=== PATIENT | male | born 1970 | race African-American/Black ===

== ENCOUNTER 2017-09-23 16:53 | Inpatient (IN) | payer OTHER ==
[~2017-09-23 16:53] MED LIST: Dexamethasone 20 MG/5 ML VIAL ONE; Glycopyrrolate 0.2 MG/ML 5 ML SYRINGE ONE; ISOVUE-370 76%-LOCM 1 ML ONE; Lidocaine 1% PF 5 ML VIAL ONE; Ondansetron HCl/PF 4 MG/2 ML Vial ONE; PROPOFOL 200 MG/20 ML VIAL ONE
[2017-09-23] MEDS ORDERED: MEROPENEM 1 GM/50 ML 1 GM in Premix Bag 1 BAG IVPB SCH (18:30)
--- NOTE | 2017-09-23 19:19 | CT ---
CT CHEST AND ABDOMEN AND PELVIS AND THORACIC AND LUMBAR SPINE PERFORMED WITH CONTRAST: History: Patient was gored by a bull. Injury in upper abdomen region. FINDINGS: The lungs are clear of any infiltrative process. There are subsegmental atelectatic changes seen in t he lung bases. No pleural effusions. No pulmonary contusion identified. No rib fractures visualized. Thoracic aorta is normal in caliber. No signs of mediastinal hematoma. CT OF ABDOMEN PERFORMED WITH CONTRAST ENHANCEMENT: There is a liver laceration near the junction of the right and left lobes of the liver. This extends approximately 2.6 cm into the liver parenchyma. There is some fairly minimal capsular hematoma presen t. There is evidence of soft tissue injury in this area. The spleen and pancreas regions are unremark able as is the gallbladder. Incidental note is made of a small hepatic cyst adjacent to the gallbladd er. Right and left adrenal glands and right and left kidneys are normal in size. There is some trace flui d in the right pericolic gutter. CT OF PELVIS PERFORMED WITH CONTRAST ENHANCEMENT: No evidence of adenopathy, mass, or free fluid. CT OF THORACIC SPINE: Unremarkable. CT OF LUMBAR SPINE: Unremarkable. IMPRESSION: 1. Evidence of soft tissue injury just to the right of midline in the upper abdomen region. This is a ssociated with a grade II liver laceration. Findings telephoned to Dr. Perry. POS: [facility]
[2017-09-23] MEDS ORDERED: Ondansetron HCl/PF 4 MG/2 ML Vial ONE (20:40)
[2017-09-23] MEDS ORDERED: Midazolam HCl 2 mg/2 ml Vial ONE (20:41)
[2017-09-23] MEDS ORDERED: Fentanyl 100 MCG/2 ML VIAL ONE ×3 (20:41→23:28)
[2017-09-23] MEDS ORDERED: Bupivacaine/Epinephrine 0.25% 30 ML VIAL ONE (20:51)
[2017-09-23] MEDS ORDERED: Promethazine HCl 25 MG/ML VIAL SLOW IVP PRN (22:50)
[2017-09-23] MEDS ORDERED: Promethazine HCl 25 MG/ML VIAL IM PRN (22:50)
[2017-09-23] MEDS ORDERED: Ondansetron HCl/PF 4 MG/2 ML Vial IVP PRN (22:50)
[2017-09-24] MEDS ORDERED: Dextrose 50% Abboject 50 ML SYRINGE SLOW IVP PRN (00:18)
[2017-09-24] MEDS ORDERED: Dextrose 5% in Water 1,000 ML IV PRN (00:18)
[2017-09-24] MEDS: Sodium Chloride 0.9% 1,000 ML IV SCH (02:09)
[2017-09-24] MEDS: Piperacillin/Tazobactam 3.375 GM in Sodium Chloride 0.9% 100 ML IVPB SCH ×2 (02:09→08:12)
--- NOTE | 2017-09-24 03:07 | HP ---
DATE OF ADMISSION: 09/23/2017 ADMITTING PHYSICIAN: Dr. Abdifatah Ruano. HISTORY OF PRESENT ILLNESS: Mr. 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 He reports that he was knocked down and then abl e to get back up on his own. He was taken to the [place] [facility] where a penetrating abdominal wound was identified. He was then transferred to [facility] for a hig her level of care and definitive treatment. He has remained hemodynamically stable. Workup in the e mergency department showed soft tissue injury to the upper abdomen as well as a grade 2 liver lacerat ion. Trauma Services was consulted for admission and management. PAST MEDICAL HISTORY: None. PAST SURGICAL HISTORY: Left inguinal hernia repair. MEDICATIONS: None. ALLERGIES: None. SOCIAL HISTORY: Tobacco, none. Alcohol, six pack of beer per day. Drugs, none. LABORATORY DATA: CBC: WBC 7.5, RBC 4.51, hemoglobin 14.5, hematocrit 39.4, platelets 267. Chemistr y: Sodium 143, potassium 3.5, chloride 108, carbon dioxide 21, glucose 95, BUN 20, creatinine 1.4, c alcium 9.87, total bilirubin 0.5, alkaline phosphatase 69, AST 46, ALT 28. REVIEW OF SYSTEMS: The patient denies fever, chills, recent weight loss or generalized malaise. PABLITO NT: Denies otorrhea, rhinorrhea, sore throat, neck pain. Cardiovascular: Denies chest pain, syncop e, palpitations. Respiratory/Chest: Denies cough, shortness of breath, wheezing. Denies chest wall tenderness. Gastrointestinal: Reports wound to upper abdomen. Reports abdominal pain around wound . Denies nausea, vomiting, diarrhea, constipation. Musculoskeletal: Denies joint pain or trauma. Skin: Denies rash or skin changes. Neurologic: Denies dizziness, focal weakness or seizures. Heme /Lymphatic: Denies abnormal bleeding. PHYSICAL EXAMINATION: VITAL SIGNS: Blood pressure 107/70, pulse 98, respirations 20, temperature 97.8, O2 sat 98% on room air. CONSTITUTIONAL: Well-nourished, well-developed male, lying in bed, in no acute distress. HEENT: Atraumatic, normocephalic. NECK: Trachea midline. No posterior neck tenderness. CARDIOVASCULAR: Regular rate and rhythm. Heart sounds normal. PULMONARY/CHEST: Bilateral breath sounds clear. No respiratory distress. Chest movement symmetrica l. ABDOMEN: Wound to right upper quadrant approximately 4 cm across with tenderness around wound. BACK: Normal inspection, normal range of motion, no tenderness, no step-offs. EXTREMITIES: Moves all extremities well. Cap refill brisk. Neurovascularly intact all extremities. NEUROLOGIC: GCS 15. Awake, alert, and oriented x3. No focal deficits. SKIN: Warm, dry, normal in color. ASSESSMENT: 1. Status post penetrating abdominal trauma after being struck by horn. 2. Grade 2 liver laceration. PLAN: 1. The patient to go to OR with Dr. Ruano for laparoscopy and washout. To be admitted to [facility] equently. 2. Zosyn given in [place] and Merrem given in ED. 3. Continue IV antibiotics. 4. N.p.o. and IV fluids. 5. IV analgesia. The patient was seen and examined with Dr. Ruano who agrees with plan.
[2017-09-24 04:08] VITALS: BMI 26.1
[2017-09-24 04:31] LABS: Anion Gap 12 mmol/L (10-20); BUN (Urea Nitrogen) 15 mg/dL (8.9-20.6); Calc. Creatinine Clearance 100 mL/min (70-130); Calcium 8.7 mg/dL (7.8-10.44); Carbon Dioxide 23 mmol/L (22-29); Chloride 104 mmol/L (98-107); Estimated GFR-MDRD Greater than 90; Glucose 121 mg/dL (70-105); Magnesium 1.9 mg/dL (1.6-2.6); Phosphorus 3.2 mg/dL (2.3-4.7); Potassium 4.2 mmol/L (3.5-5.1); Sodium 135 mmol/L (136-145)
[2017-09-24 04:49] LABS: Band 12 % (5-11); Hemoglobin 12.8 g/dL (14.0-18.0); Hypochromia SLIGHT = 6-15 cells (100X) (0-5/hpf); Lymphocytes 6 % (21-51); MDiff Complete? YES; Mean Corpuscular HGB CONC 34.7 g/dL (32.0-36.0); Mean Corpuscular Hemoglobin 31.7 pg (27.0-31.0); Mean Corpuscular Volume 91.5 fL (78.0-98.0); Mean Platelet Volume 6.6 fL (7.4-10.4); Monocytes 4 % (0-10); Neutrophil 78 % (42-75); PLT Morphology Comment Appears Adequate; Platelet Count 212 thou/uL (130-400); RBC Distribution Width 11.8 % (11.5-14.5); Red Blood Cell (RBC) Count 4.02 mill/uL (4.70-6.10); White Blood Cell (WBC) Count 17.1 thou/uL (4.8-10.8)
--- NOTE | 2017-09-24 07:46 | ADD-HP ---
ADDENDUM: CHIEF COMPLAINT: Gored by bull. HISTORY OF PRESENT ILLNESS: Mr. 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 He was knocked over, but got back up again and was not trampled or in jured in any other way. He had obvious injury to his anterior abdomen and was taken to his local [facility] where he was found to have a liver laceration. He was transferred to [place] for furt her care. He received antibiotics in the emergency room. On imaging, he clearly had a transabdomina l injury with penetration into the peritoneum with a liver laceration to the dome of the right lobe o f the liver. He has been hemodynamically stable throughout his transfer and evaluation. PAST MEDICAL HISTORY: None. PAST SURGICAL HISTORY: Left inguinal hernia repair. FAMILY HISTORY: Noncontributory. He does not take any medications on a regular basis and does not h ave any allergies. SOCIAL HISTORY: He does not smoke or use illicit drugs. Occasional alcohol use. PHYSICAL EXAMINATION: VITAL SIGNS: In the emergency room, temperature was 97.8, heart rate 93, blood pressure 117/64, resp irations 20 and 97% saturated on room air. GENERAL: Reveals a healthy-appearing man in no acute distress. He is normocephalic, atraumatic. NECK: Supple and nontender without step-offs. HEART: Regular in its rate and rhythm without murmurs, rubs, or gallops. LUNGS: Clear to auscultation bilaterally. He has no palpable crepitance, no tenderness to palpation of his chest and breath sounds are equal on both sides. He has a laceration to his right rectus she ath midway between the umbilicus and the costal margin. He is tender in that area only, does not exh ibit tenderness over the rest of his abdomen. EXTREMITIES: Warm and well perfused without edema and there is a small laceration on his hardin. NEUROLOGIC: No focal deficits. PSYCHIATRIC: Alert, oriented, and appropriate. LABORATORY AND DIAGNOSTIC DATA: Labs were done at [place] and were unremarkable. CT images are re viewed and are as per HPI. No other significant injuries were seen, and there was no free air and no pneumothorax. ASSESSMENT AND PLAN: Transabdominal penetrating injury into the right lobe of the liver based on the trajectory of the wound, I think that injury to bowel is unlikely, however. I think this needs to b e excluded. In addition, I am concerned about the possibility of a diaphragm injury. I have recomme nded going to the operating room for washout and closure of the abdominal wall wound and diagnostic l aparoscopy with repair of an injury seen. The patient was in agreement with this. He was posted melissa rgently for the operating room. Antibiotics have been started in the emergency room by Dr. Perry.
[2017-09-24] MEDS: Enoxaparin Sodium 40 MG/0.4 ML SYRINGE SC SCH (10:11)
[2017-09-24] MEDS ORDERED: traMADol HCl 50 MG TAB PO PRN ×2 (10:23)
[2017-09-24] MEDS: Famotidine/PF 20 mg/2ml Vial SLOW IVP SCH ×2 (11:57→21:38)
[2017-09-24] MEDS: Ibuprofen 600 MG TAB PO SCH ×4 (12:02→23:54)
[2017-09-24] MEDS: Acetaminophen 500 MG TAB PO SCH ×3 (14:47→21:39)
--- NOTE | 2017-09-24 21:06 | PRG ---
DATE OF SERVICE: 09/24/2017 ATTENDING PHYSICIAN: Dr. Dav Forman. SUBJECTIVE: Mr. Madden is a 47-year-old male who was gored in the abdomen by a cow one day ago. He wa s taken to the operating room last p.m. for washout and diagnostic laparoscopy by Dr. Ruano. He wa s stable on the surgical floor subsequently. He has had no issues with pain control. He is ambulato ry around the floor without assistance. OBJECTIVE: VITAL SIGNS: Temperature 98.9, pulse 70, respirations 20, O2 sat 99% room air, blood pressure 129/84 . CONSTITUTIONAL: Well-nourished, well-developed male in no acute distress. HEENT: Atraumatic, normocephalic. PULMONARY: Bilateral breath sounds, even and unlabored. CARDIOVASCULAR: Regular rate and rhythm. Heart sounds normal. ABDOMEN: Soft. Mild incisional tenderness. No guarding. EXTREMITIES: Moves all extremities. Cap refill brisk. NEUROLOGIC: GCS 15. Awake, alert, oriented x4. LABORATORY DATA: CBC: WBC 17.1, RBC 4.02, hemoglobin 12.8, hematocrit 36.8, platelets 212. Assurance Senior ry: Sodium 135, potassium 4.2, chloride 104, carbon dioxide 23, BUN 15, creatinine 0.85, glucose 121 , calcium 8.7, phosphorus 3.2, magnesium 1.9. ASSESSMENT: 1. Penetrating injury to abdomen by animal. 2. Status post exploratory laparoscopy postoperative day #1. 3. Leukocytosis 12% bandemia. PLAN: 1. Discontinue IV fluids and advance to clear liquid diet. 2. Encourage ambulation. 3. Continue oral analgesia. Transitioned from IV medications. 4. Pepcid for gastritis prophylaxis. 5. Lovenox for DVT prophylaxis. 6. Anticipate patient will not have any rehab or long-term care needs upon discharge. Anticipate baldemar taylor will be discharged to home. Patient was seen and examined with Dr. Forman, who agrees with plan.
[2017-09-25] MEDS: Sodium Chloride 0.9% 1,000 ML IV SCH (02:20)
[2017-09-25] MEDS: Acetaminophen 500 MG TAB PO SCH ×2 (03:03→08:42)
[2017-09-25 04:27] VITALS: TEMP 98.2
[2017-09-25] MEDS: Ibuprofen 600 MG TAB PO SCH ×2 (05:23→13:15)
[2017-09-25] MEDS ORDERED: Docusate 100 MG CAP PO SCH (07:45)
[2017-09-25] MEDS ORDERED: Senokot 8.6 MG TAB PO SCH (07:45)
[2017-09-25] MEDS ORDERED: Polyethylene Glycol 3350 17 GM Packet PO SCH (07:45)
[2017-09-25 07:49] VITALS: BP 128/80
[2017-09-25 08:13] LABS: #Eosinphils 0.1 thou/uL (0.0-0.7); #Lymphocytes 1.1 thou/uL (1.20-3.40); #Monocytes 0.9 thou/uL (0.11-0.59); #Neutrophils 5.7 thou/uL (1.40-6.50); %Basophils 0.3 % (0.0-1.0); %Eosinophils 0.9 % (0.0-10.0); %Monocytes 11.3 % (0.0-10.0); %Neutrophils 73.5 % (42.0-75.0); Hemoglobin 12.6 g/dL (14.0-18.0); Mean Corpuscular HGB CONC 34.8 g/dL (32.0-36.0); Mean Corpuscular Hemoglobin 32.4 pg (27.0-31.0); Mean Corpuscular Volume 92.8 fL (78.0-98.0); Platelet Count 179 thou/uL (130-400); RBC Distribution Width 11.8 % (11.5-14.5); Red Blood Cell (RBC) Count 3.91 mill/uL (4.70-6.10); White Blood Cell (WBC) Count 7.7 thou/uL (4.8-10.8)
[2017-09-25] MEDS: Enoxaparin Sodium 40 MG/0.4 ML SYRINGE SC SCH (08:42)
[2017-09-25] MEDS ORDERED: Famotidine 20 MG TAB PO SCH (09:00)
--- NOTE | 2017-09-25 11:50 | DIS ---
DATE OF ADMISSION: 09/23/2017 DATE OF DISCHARGE: 09/25/2017 ADMITTING PHYSICIAN: Abdifatah Ruano M.D. DISCHARGING PHYSICIAN: Dr. Dav Forman ADMITTING DIAGNOSES: 1. Penetrating trauma to the abdomen by a cow horn. 2. Grade III laceration to right lobe of the liver. DIAGNOSES ON DISCHARGE: 1. Penetrating trauma to the abdomen by a cow horn. 2. Grade III laceration to right lobe of the liver. OPERATION AND PROCEDURES: Diagnostic laparoscopy by Dr. Ruano on 09/23/2017. Please see separate dictation for procedure note. HISTORY AND HOSPITAL COURSE: This is a 47-year-old man who was gored by a cow on sustaining the aforementioned injuries for which he was taken to the operating room for diag nostic laparoscopy. No other intra-abdominal injuries was noted except for the grade III liver lacer ation. Following surgery, the patient was admitted to surgical floor where he has remained at time of discha rge. Hospitalization has been essentially uneventful. Post-injury day 2. The patient ambulates wit h minimum difficulty. He is tolerating general diet, having normal bowel and urinary function. The patient ambulates without any difficulty. He does not take any narcotic analgesics at this time. DISCHARGE INSTRUCTIONS: He has maximized hospital benefit and will be discharged home with the obie ruiz instructions: 1. He follows up with me in the [facility]uma Clinic in 1 month with a repeat CT scan of the abdomen and pe lvis. He has been instructed to avoid any contact sports or activities that could predispose him to a fall and reinjury to his liver. 2. He may take Tylenol 1000 mg p.o. q.6 hours p.r.n. pain and alternate this with ibuprofen 800 mg p .o. t.i.d. p.r.n. pain. 3. He is to call me with any questions or problems including intolerance to oral intake, exacerbatio n of abdominal pain or fever in excess of 101 degrees Fahrenheit. The above instructions given to the patient, who indicates understanding of information given. I hav e answered all his questions. The patient has expressed gratitude for the care and nurturing provide d to him during this hospitalization and surgery.
--- NOTE | 2017-09-27 22:24 | PDOC.OP ---
Operative Note - Operative Note Operative Note: PROCEDURE: Diagnostic laparoscopy, washout and closure of anterior abdominal wound DATE OF PROCEDURE:09/23/2017 SURGEON: Abdifatah Ruano M.D. PREOPERATIVE DIAGNOSES: Penetrating abdominal wound POSTOPERATIVE DIAGNOSIS: Penetrating abdominal wound HISTORY:: Patient is a 47-year-old man who was gored by a cow. He was found to have a anterior abdominal wound with penetration of the rectus sheath and a liver laceration on CT consistent with transabdominal penetration. Recommendation was made to go to the operating room for diagnostic laparoscopy washout and closure of the anterior abdominal wound. PROCEDURE IN DETAIL: After informed consent was obtained, the patient was taken to the operating room and general anesthesia was induced. He was prepped and draped in standard sterile fashion, and the anterior abdominal wound copiously irrigated and examined. There was a long, jagged transverse laceration of the anterior rectus sheath, but the underlying muscle was intact and no posterior rectus sheath defect was visible within the wound. Hemostasis was verified and the anterior rectus sheath reapproximated with interrupted [id number] 2-0 Vicryl sutures. Local anesthesia was infused for postoperative pain management and the skin was closed with 4-0 Monocryl. Local anesthesia was infused at the umbilicus and a transverse incision was made. The fascia was elevated and a Veress needle placed into the abdominal cavity. Carbon dioxide gas insufflated to an intra-abdominal pressure of 15 which the patient tolerated well. Opening pressure was less than 5.The Veress needle was withdrawn and a [place] port advanced under direct laparoscopic vision. The abdominal cavity was carefully examined and a small penetrating wound in the epigastric area through the falciform ligament was seen. A laceration on the dome of the right liver was also noted but there was no active bleeding. Two additional dissecting trochars were placed laterally after local anesthesia was infused, and the gallbladder, underside of the liver, transverse colon, stomach, and first part of the duodenum were carefully examined. There was no evidence of injury. The omentum appeared to be intact and there was no evidence of bleeding. The transverse colonwas elevated and the ligament of Treitz identified. The small intestine was run from the ligament of Treitz to the ileocecal valve and this was entirely normal. The abdominal cavity was copiously irrigated to clear, and the liver injury reexamined and confirmed to be hemostatic. The lateral trochars were removed and hemostasis verified. Carbon dioxide gas was allowed to desufflate through the umbilical trocar which was then removed. The skin incisions were closed with 4-0 Monocryl and Dermabond was placed. The patient was extubated and taken to the recovery room in good condition. Estimated blood loss was minimal. There were no complications. There were no specimens.
== END 2017-09-25 12:34 | disposition home or self-care (01) | DRG 420 ==
LOC: ERS 16:53 → SDC/OP 21:27 → SURG A 23:49
PROVIDERS: ADMIT Surgery; ATTEND Surgery
PROC: 0WJG4ZZ Inspection of Peritoneal Cavity, Percutaneous Endoscopic Approach (ICD-10-PCS; principal; 2017-09-23)
DX: S36.113A Laceration of liver, unspecified degree, initial encounter (principal); S31.61 Laceration without foreign body of abdominal wall with penetration into peritoneal cavity; Y92.9 Unspecified place or not applicable; W55.22XA Struck by cow, initial encounter; D72.829 Elevated white blood cell count, unspecified
CPT/HCPCS: 36415; 71260; 74177; 80048; 83735; 84100; 85025; 96365; 96374; 96375; 96376; G0390; G8978-GP-CI; G8979-GP-CI; G8980-GP-CI; J1100; J1650; J2001; J2185; J2250; J2270; J2405; J2543; J2704; J3010; J7050; S0028

== ENCOUNTER 2017-10-25 11:07 | Outpatient (CLI) | payer OTHER ==
--- NOTE | 2017-10-25 13:38 | CT ---
CT ABDOMEN WITH CONTRAST CT PELVIS WITH CONTRAST: DATE: 10/25/17 HISTORY: 47-year-old male follow-up liver laceration. COMPARISON: 09/23/17. TECHNIQUE: IV injection of iodinated contrast media: 100 mL [id number]. Oral contrast media: PO Isovue. FINDINGS: The laceration in hepatic segment 4a of the left lobe of the liver, close to the junction with hepati c segment 8 of the right lobe, previously measured approximately 3.5 x 1.5 x 3 cm. It has become much narrower, currently measuring 2 x 0.3 x 2 cm. Inferior to this, there is a small hepatic cyst in hepatic segment 4b. Two tiny hyperdense lesions, both in subcapsular locations at the right lobe liver dome, one at hepat ic segment 8 and the other at hepatic segment 7, are unchanged. These JUAN CARLOS's are of uncertain etiolog y. Perhaps they represent tiny focal perfusion anomalies. There are no other hepatic lesions. The po rtal vein, its branches, and hepatic veins, are patent. The abdominal aorta, bilateral kidneys, adrenals, pancreas, spleen, and urinary bladder are normal. N o pleural effusion. No ascites or pneumoperitoneum. No small bowel dilation. No signs of colonic dive rticulitis. IMPRESSION: Significant interval decrease in size of the hepatic laceration. ARA POS: [facility]
== END 2017-10-25 11:08 | disposition home or self-care (01) ==
LOC: RAD 11:07
PROVIDERS: ATTEND Physician Assistant
DX: S39.91XD Unspecified injury of abdomen, subsequent encounter (principal); S36.113D Laceration of liver, unspecified degree, subsequent encounter
CPT/HCPCS: 74177; 85025